=== PATIENT | male | born 1990 | race Caucasian/White ===

== ENCOUNTER 2019-09-28 19:12 | Inpatient (IN) | payer OTHER ==
[2019-09-28 20:13] VITALS: BMI 18.1
--- NOTE | 2019-09-28 22:56 | HP ---
COWS - Scale Resting Pulse: 1= [place] 81-100 Sweatin= Chills/Flushing Restless Observation: 0= Sits Still Pupil Size: 2= Moderately Dilated (Pupils = 3 mm) Bone or Joint Aches: 1= Mild Discomfort Runny Nose/ Eye Tearin= Nasal Congestion GI Upset > 30mins: 0= None Tremor Observation: 1= Tremor [place], Not Seen Yawning Observation: 1= 1-2x During Session Anxiety or Irritability: 2=Irritable/Anxious Goose Flesh Skin: 0=Smooth Skin COWS Score: 10 CIWA Score Nausea/Vomitin-No Nausea/No Vomiting Muscle Tremors: 3 Anxiety: 4-Mod. Anxious/Guarded Agitation: 1-Slight > Activity Paroxysmal Sweats: 3 (Increased facial moisture) Orientation: 0-Oriented Tacttile Disturbances: 1-Very Mild Itch/Numbness Auditory Disturbances: 0-None Visual Disturbances: 0-None Headache: 0-None Present CIWA-Ar Total Score: 12 - Admission Criteria OASAS Guidelines: Admission for Medically Managed Detox: Requires at least one of the followin. CIWA greater than 12 2. Seizures within the past 24 hours 3. Delirium tremens within the past 24 hours 4. Hallucinations within the past 24 hours 5. Acute intervention needed for co occurring medical disorder 6. Acute intervention needed for co occurring psychiatric disorder 7. Severe withdrawal that cannot be handled at a lower level of care (continued vomiting, continued diarrhea, abnormal vital signs) requiring intravenous medication and/or fluids 8. Patient presents the following: CIWA greater than 12 Admission Criteria Met: Admission criteria met Admitting History and Physical - Smoking History Smoking history: Current every day smoker Admission [facility] Chief Complaint: I been using and I need to detox. Allergies/Adverse Reactions: Allergies Allergy/AdvReac Type Severity Reaction Status Date / Time No Known Allergies Allergy Verified 09/28/19 20:02 History of Present Illness: 29 yo first presentation to [facility] seeking heroin, alcohol, and Xanax detox. Hx: Seizure 4 yrs ago r/t abruptly stopping Xanax (states was using a lot more) UTox: + RAMY/MOR/FEN BRANDON: 0.0 Alcohol use began at age 18. Currently drinks a 1/2 pint liquor x past 1 year. Last drink 5 pm yesterday. Heroin use began at age 20. Currently uses 20 bags/day. States smokes. Current use x 3 years Recently detoxed in June 2019 and incarcerated in Aug 2019. States relapsed immediately. States last used 8 pm last night. Denies sharing needles or works or re-using. Has a Narcan kit at home. Cocaine use began at age 28. Currently uses $20/day. States sniffs. Xanax use began at age 22. States was using 3 sticks/day. Last used 2 days ago. Nicotine use began at age 16. Currently smokes 4 cig/day. PMHx: denies MHHx: Depression. Anxiety. Does not see a Psych. Not on MH meds. Denies thoughts of harming self or others. SHx: Domiciled. Unemployed. Current legal issues - states not mandated into tx. Patient Name: Jeff Garcia Date: 1990 Address: [address] [place] [id number] Sex: Male Rx Written Rx Dispensed Drug Quantity Days Supply Prescriber Name 06/28/2019 06/28/2019 buprenorphine-naloxone 4-1 mg sl film 14 7 Ronan Hendricks 06/18/2019 06/18/2019 buprenorphine-naloxone 4-1 mg sl film 14 7 Tita Hogue 10/14/2018 10/14/2018 suboxone 4 mg-1 mg sl film 26 14 Tita Hogue Patient Name: Jeff Garcia Date: 1990 Address: [address] [place] [address] Sex: Male Rx Written Rx Dispensed Drug Quantity Days Supply Prescriber Name 04/25/2019 04/30/2019 oxycodone-acetaminophen 5-325 mg tablet 12 3 Angely Covarrubias Patient Name: Jeff Garcia Date: 1990 Address: [address] [place] [id number] Sex: Male Rx Written Rx Dispensed Drug Quantity Days Supply Prescriber Name 04/18/2019 04/18/2019 oxycodone-acetaminophen 5-325 mg tablet 15 6 Maritza Gill Patient Name: Jeff Garcia Date: 1990 Address: [address] [place] [id number] Sex: Male Rx Written Rx Dispensed Drug Quantity Days Supply Prescriber Name 03/23/2019 03/27/2019 buprenorphine-naloxone 2-0.5 mg sl film 30 30 Ho, Raj Morales MD 03/23/2019 03/27/2019 buprenorphine-naloxone 8-2 mg sl film 30 30 Ho, Raj Morales MD 02/10/2019 02/13/2019 buprenorphine-naloxone 8-2 mg sl film 30 30 Ho, Raj Morales MD 02/10/2019 02/13/2019 buprenorphine-naloxone 4-1 mg sl film 30 30 Ho, Raj Morales MD 01/26/2019 01/27/2019 buprenorphine-naloxone 8-2 mg sl film 15 15 Ho, Raj Morales MD 01/26/2019 01/27/2019 buprenorphine-naloxone 4-1 mg sl film 15 15 Ho, Raj Morales MD 12/22/2018 12/26/2018 buprenorphine-naloxone 4-1 mg sl film 15 15 Ho, Raj Morales MD 12/22/2018 12/26/2018 buprenorphine-naloxone 8-2 mg sl film 15 15 Ho, Raj Morales MD 11/20/2018 12/03/2018 buprenorphine-naloxone 4-1 mg sl film 5 5 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 11/30/2018 12/03/2018 buprenorphine-naloxone 8-2 mg sl film 15 15 Ho, Raj Morales MD 11/11/2018 11/16/2018 buprenorphine-naloxone 8-2 mg sl film 15 15 Leonides Hurt MD 10/28/2018 11/01/2018 buprenorphine-naloxone 8-2 mg sl film 15 15 Leonides Hurt MD 10/23/2018 10/26/2018 buprenorphine-naloxone 8-2 mg sl film 7 7 James Brunner Exam Limitations: No Limitations - Ebola screening Have you traveled outside of the country in the last 21 days: No Have you had contact with anyone from an Ebola affected area: No Have you been sick,other than usual withdrawal symptoms: No Do you have a fever: No - Review of Systems Constitutional: Chills, Diaphoresis, Changes in sleep (Difficulty falling and staying asleep), Unintentional Wgt. Loss EENT: reports: Nose Congestion Respiratory: reports: No Symptoms reported Cardiac: reports: No Symptoms Reported GI: reports: No Symptoms Reported : reports: No Symptoms Reported Musculoskeletal: reports: Neck Pain (Chronic sharp neck pain, w/ stiffness x when gets high cracks necks) Integumentary: reports: No Symptoms Reported Neuro: reports: Headache Endocrine: reports: Increased Thirst Hematology: reports: No Symptoms Reported Psychiatric: reports: Judgement Intact, Orientated x3, Anxious, Depressed ( Denies thoughts of harming self or others) Patient History - Patient Medical History Hx Asthma: No Hx Cardiac Disorders: No Hx Hypertension: No Hx Seizures: No Hx Diabetes: No Hx Gastrointestinal Disorders: No Hx Sexually Transmitted Disorders: No Hx Renal Disease (ESRD): No - Patient Surgical History Past Surgical History: No - PPD History Previous Implant?: Yes Documented Results: Negative w/o proof Implanted On Prior R Admission?: No PPD to be Administered?: Yes - Smoking Cessation Smoking history: Current every day smoker Have you smoked in the past 12 months: Yes Aproximately how many cigarettes per day: 5 Hx Chewing Tobacco Use: No Initiated information on smoking cessation: Yes 'Breaking Loose' booklet given: 09/28/19 - Substance & Tx. History Hx Alcohol Use: Yes Hx Substance Use: Yes Substance Use Type: Alcohol, Cocaine, Heroin, Opiates Hx Substance Use Treatment: Yes (detox, rehab, past suboxone, no MMTP) - Substances abused Heroin Substance route: Injection Frequency: Daily Amount used: 20 bags Age of first use: 20 Date of last use: 09/27/19 Alprazolam (Xanax) Substance route: Oral Frequency: Daily Amount used: 10 mg Age of first use: 22 Date of last use: 09/27/19 Alcohol Substance route: Oral Frequency: Daily Amount used: 1 pint of cognac Age of first use: 18 Date of last use: 09/27/19 Admission Physical Exam S - Vital Signs Vital Signs: Vital Signs - 24 hr 09/28/19 20:00 Temperature 98.1 F Pulse Rate 87 Respiratory 18 Rate Blood Pressure 130/77 - Physical General Appearance: Yes: Nourished, Mild Distress, Tremorous, Sweating ( Increased facial moisture) HEENTM: Yes: EOMI (Jerking movement of eyes upon lateral gaze), Hearing grossly Normal, Normocephalic, Normal Voice, MARTIR (Pupils = 3 mm), Pharynx Normal (Dry mucous membranes.), Nasal Congestion, Other (Thickened saliva) Respiratory: Yes: Lungs Clear (Pulse Ox = 99 %), Normal Breath Sounds, No Respiratory Distress Neck: Yes: No masses,lesions,Nodules, Supple Breast: Yes: Breast Exam Deferred Cardiology: Yes: Regular Rhythm, Regular Rate, S1, S2 Abdominal: Yes: Non Tender, Flat, Soft, Increased Bowel Sounds Genitourinary: Yes: Within Normal Limits Back: Yes: Normal Inspection Musculoskeletal: Yes: full range of Motion, Gait Steady Extremities: Yes: Normal Capillary Refill, Tremors ([place] but not seen) Neurological: Yes: family assistant II-XII NML intact (Jerking movement of eyes upon lateral gaze) Integumentary: Yes: Normal Color, Dry (Except for facial moisture), Warm, Moist (Increased facial moisture - all other areas dry), Other (Decreased skin turgot) Lymphatic: Yes: Within Normal Limits - Diagnostic (1) Unspecified nystagmus Current Visit: Yes Status: Acute (2) Skin abrasion Current Visit: Yes Status: Acute Comment: (R) leg (3) Alcohol dependence with withdrawal, uncomplicated Current Visit: Yes Status: Acute (4) Opioid dependence with withdrawal Current Visit: Yes Status: Acute (5) Nicotine dependence, unspecified, uncomplicated Current Visit: Yes Status: Chronic Qualifiers: Nicotine product type: cigarettes Qualified Code(s): F17.210 - Nicotine dependence, cigarettes, uncomplicated (6) Cocaine dependence, uncomplicated Current Visit: Yes Status: Chronic (7) Skin picking habit Current Visit: Yes Status: Chronic (8) Dehydration symptoms Current Visit: Yes Status: Acute Cleared for Admission [facility] - Detox or Rehab [facility] Level of Care: Medically Managed Detox Regimen/Protocol: Methadone/Librium Claeared for Rehab Admission: No Breathalyzer - Breathalyzer Breathalyzer: 0 Urine Drug Screen - Test Device Lot number: [id number] Expiration date: 07/12/21 - Control Is test valid?: Yes - Results Drug screen NEGATIVE: No Urine drug screen results: RAMY-Cocaine, FEN-Fentanyl, MOP-Opiates Inpatient Rehab Admission - Rehab Decision to Admit Inpatient rehab admission?: No
[2019-09-28] MEDS ORDERED: MAGNESIUM CITRATE 300 ML BOTTLE PO PRN (23:39)
[2019-09-28] MEDS ORDERED: ACETAMINOPHEN 325 MG TABLET (FP) PO PRN ×2 (23:39)
[2019-09-28] MEDS ORDERED: MENTHOL/PHENOL 1 EACH UD MM PRN (23:39)
[2019-09-28] MEDS ORDERED: MAG HYDROX/AL HYDROX/SIMETH 30 ML UNIT-DOSE CUP PO PRN (23:39)
[2019-09-28] MEDS ORDERED: BISMUTH SUBSALICYLATE 524 MG/30 ML UD PO PRN (23:39)
[2019-09-28] MEDS ORDERED: NICOTINE POLACRILEX 2 MG GUM BUC PRN (23:39)
[2019-09-28] MEDS ORDERED: IBUPROFEN 400 MG TABLET (FP) PO PRN (23:39)
[2019-09-28] MEDS ORDERED: MAGNESIUM HYDROX 2400MG/30ML ORAL SUSPENSION 30 ML CUP PO PRN (23:39)
[2019-09-28] MEDS ORDERED: chlordiazePOXIDE HCL 10 MG CAPSULE PO PRN (23:45)
[2019-09-28] MEDS ORDERED: cloNIDine HCL 0.1 MG TABLET PO PRN (23:47)
[2019-09-28] MEDS ORDERED: METHADONE HCL 10 MG TABLET (FOR DETOX USE ONLY) PO ONE (23:59)
[2019-09-29] MEDS: chlordiazePOXIDE HCL 25 MG CAPSULE PO SCH ×3 (06:48→21:35)
[2019-09-29] MEDS ORDERED: METHADONE HCL 5 MG TABLET (FOR DETOX USE ONLY) ONE (09:21)
[2019-09-29] MEDS ORDERED: METHADONE HCL 10 MG TABLET (FOR DETOX USE ONLY) ONE (09:22)
[2019-09-29] MEDS ORDERED: METHADONE (DETOX) 20 MG, METHADONE (DETOX) 5 MG PO ONE (10:00)
[2019-09-29] MEDS: BACITRACIN 0.9 GM PACKET TP SCH ×2 (10:23→21:38)
[2019-09-29] MEDS: PRENATAL VITAMINS W/ FOLIC ACID TABLET (FP) PO SCH (10:23)
--- NOTE | 2019-09-29 10:27 | PN ---
[facility] CIWA - CIWA Score Nausea/Vomitin-No Nausea/No Vomiting Muscle Tremors: 3 Anxiety: 2 Agitation: 3 Paroxysmal Sweats: 3 Orientation: 0-Oriented Tacttile Disturbances: 0-None Auditory Disturbances: 0-None Visual Disturbances: 0-None Headache: 0-None Present CIWA-Ar Total Score: 11 S COWS - Scale Resting Pulse: 1= [place] 81-100 Sweatin= Chills/Flushing Restless Observation: 1= Difficult to Sit Still Pupil Size: 0= Normal to Room Light Bone or Joint Aches: 2= Severe Diffuse Aches Runny Nose/ Eye Tearin= None GI Upset > 30mins: 0= None Tremor Observation of Outstretched Hands: 1= Tremor [place], Not Seen Yawning Observation: 1= 1-2x During Session Anxiety or Irritability: 1=Feels Anxious/Irritable Goose Flesh Skin: 3=Piloerection COWS Score: 11 [facility] Progress Note (SOAP) Subjective: sweats shakes chills irritable restless agitation interrupted sleep Objective: 09/29/19 10:27 Vital Signs Temperature 97.7 F 09/29/19 07:02 Pulse Rate 78 09/29/19 07:02 Respiratory Rate 18 09/29/19 07:02 Blood Pressure 116/58 L 09/29/19 07:02 O2 Sat by Pulse Oximetry (%) labs pending aaox3 lying in bed no acute distress Assessment: 09/29/19 10:27 withdrawals Plan: continue detox increase fluids
[2019-09-29 10:35] LABS: HEMATOCRIT 40.3 % (35.4-49); HEMOGLOBIN 13.1 GM/dL (11.7-16.9); MCH 30.3 pg (25.7-33.7); MCHC 32.6 g/dl (32.0-35.9); MEAN PLT VOLUME 9.2 fl (7.5-11.1); PLATELET COUNT 213 K/MM3 (134-434); RBC 4.33 M/mm3 (4.00-5.60); WHITE BLOOD COUNT 7.8 K/mm3 (4.0-10.0)
[2019-09-29 10:37] LABS: ALBUMIN 3.4 g/dl (3.4-5.0); BILIRUBIN,TOTAL 0.4 mg/dL (0.2-1); BLOOD UREA NITROGEN 22.6 mg/dL (7-18); CALCIUM 8.8 mg/dL (8.5-10.1); CREATININE 1.4 mg/dL (0.55-1.3); POTASSIUM 3.4 mmol/L (3.5-5.1); TOT PROT 6.2 g/dl (6.4-8.2)
--- NOTE | 2019-09-29 10:45 | EKG ---
Test Reason : Blood Pressure : / mmHG Vent. Rate : 081 BPM Atrial Rate : 081 BPM P-R Int : 154 ms QRS Dur : 092 ms QT Int : 384 ms P-R-T Axes : 072 067 044 degrees QTc Int : 446 ms NORMAL SINUS RHYTHM MINIMAL VOLTAGE CRITERIA FOR LVH, MAY BE NORMAL VARIANT BORDERLINE ECG NO PREVIOUS ECGS AVAILABLE Confirmed by Javad Chow MD ([id number]) on 09/29/2019 10:44:32 AM Referred By: Confirmed By:Javad Chow MD
[2019-09-29] MEDS: METHOCARBAMOL 500 MG TABLET PO PRN (20:07)
[2019-09-29] MEDS: MELATONIN 5 MG TABLETS PO PRN (21:35)
[2019-09-29] MEDS: THIAMINE HCL 100 MG TABLET (FP) PO SCH (21:35)
[2019-09-30] MEDS ORDERED: chlordiazePOXIDE HCL 10 MG CAPSULE PO PRN
[2019-09-30] MEDS: chlordiazePOXIDE 5 MG CAPSULE PO SCH ×3 (06:09→21:21)
[2019-09-30] MEDS ORDERED: METHADONE HCL 10 MG TABLET (FOR DETOX USE ONLY) PO ONE (10:00)
[2019-09-30] MEDS: PRENATAL VITAMINS W/ FOLIC ACID TABLET (FP) PO SCH (10:55)
[2019-09-30] MEDS: BACITRACIN 0.9 GM PACKET TP SCH ×2 (10:55→21:21)
--- NOTE | 2019-09-30 15:47 | PN ---
S CIWA - CIWA Score Nausea/Vomitin Muscle Tremors: 2 Anxiety: 2 Agitation: 2 Paroxysmal Sweats: No Perspiration Orientation: 0-Oriented Tacttile Disturbances: 1-Very Mild Itch/Numbness Auditory Disturbances: 0-None Visual Disturbances: 0-None Headache: 1-Very Mild CIWA-Ar Total Score: 10 [facility] COWS - Scale Resting Pulse: 0= [place] 80 or Below Sweatin= No chills or Flushing Restless Observation: 1= Difficult to Sit Still Pupil Size: 1= Pupils >than Normal Bone or Joint Aches: 1= Mild Discomfort Runny Nose/ Eye Tearin= Runny Nose/Eyes GI Upset > 30mins: 1= Stomach Cramp Tremor Observation of Outstretched Hands: 2= Slight Tremor Visible Yawning Observation: 1= 1-2x During Session Anxiety or Irritability: 2=Irritable/Anxious Goose Flesh Skin: 0=Smooth Skin COWS Score: 11 S Progress Note (SOAP) Subjective: alert,irritable,anxious,interrupted sleep,tremor Objective: 09/30/19 15:45 Vital Signs Temperature 97.9 F 09/30/19 13:33 Pulse Rate 74 09/30/19 13:33 Respiratory Rate 16 09/30/19 13:33 Blood Pressure 139/70 09/30/19 13:33 O2 Sat by Pulse Oximetry (%) Laboratory Last Values WBC 7.8 K/mm3 (4.0-10.0) 09/29/19 07:45 RBC 4.33 M/mm3 (4.00-5.60) 09/29/19 07:45 Hgb 13.1 GM/dL (11.7-16.9) 09/29/19 07:45 Hct 40.3 % (35.4-49) 09/29/19 07:45 MCV 93.0 fl (80-96) 09/29/19 07:45 MCH 30.3 pg (25.7-33.7) 09/29/19 07:45 MCHC 32.6 g/dl (32.0-35.9) 09/29/19 07:45 RDW 14.0 % (11.9-15.9) 09/29/19 07:45 Plt Count 213 K/MM3 (134-434) 09/29/19 07:45 MPV 9.2 fl (7.5-11.1) 09/29/19 07:45 Sodium 141 mmol/L (136-145) 09/29/19 07:45 Potassium 3.4 mmol/L (3.5-5.1) L 09/29/19 07:45 Chloride 108 mmol/L (98-107) H 09/29/19 07:45 Carbon Dioxide 26 mmol/L (21-32) 09/29/19 07:45 Anion Gap 6 MMOL/L (8-16) L 09/29/19 07:45 BUN 22.6 mg/dL (7-18) H 09/29/19 07:45 Creatinine 1.4 mg/dL (0.55-1.3) H 09/29/19 07:45 Est GFR (CKD-EPI)AfAm 77.59 09/29/19 07:45 Est GFR (CKD-EPI)NonAf 66.94 09/29/19 07:45 Random Glucose 115 mg/dL (74-106) H 09/29/19 07:45 Calcium 8.8 mg/dL (8.5-10.1) 09/29/19 07:45 Total Bilirubin 0.4 mg/dL (0.2-1) 09/29/19 07:45 AST 13 U/L (15-37) L 09/29/19 07:45 ALT 27 U/L (13-61) 09/29/19 07:45 Alkaline Phosphatase 77 U/L (45-117) 09/29/19 07:45 Total Protein 6.2 g/dl (6.4-8.2) L 09/29/19 07:45 Albumin 3.4 g/dl (3.4-5.0) 09/29/19 07:45 RPR Titer Nonreactive (NONREACTIVE) 09/29/19 07:45 Assessment: 09/30/19 15:45 withdrawal symptom Plan: continue detox,encourage oral fluid,k replacement,repaet cmp,fasting glucose in am
[2019-09-30] MEDS ORDERED: POTASSIUM CHLORIDE TABS 20 MEQ TABLET.ER (FP) PO ONE (17:00)
[2019-09-30] MEDS: METHOCARBAMOL 500 MG TABLET PO PRN (18:38)
[2019-09-30] MEDS: MELATONIN 5 MG TABLETS PO PRN (21:21)
[2019-09-30] MEDS: THIAMINE HCL 100 MG TABLET (FP) PO SCH (21:21)
[2019-10-01] MEDS: chlordiazePOXIDE HCL 10 MG CAPSULE PO SCH ×3 (06:29→22:18)
[2019-10-01] MEDS ORDERED: METHADONE HCL 5 MG TABLET (FOR DETOX USE ONLY) ONE (09:35)
[2019-10-01] MEDS ORDERED: METHADONE HCL 10 MG TABLET (FOR DETOX USE ONLY) ONE (09:36)
[2019-10-01] MEDS ORDERED: METHADONE (DETOX) 10 MG, METHADONE (DETOX) 5 MG PO ONE (10:00)
[2019-10-01] MEDS: BACITRACIN 0.9 GM PACKET TP SCH ×2 (11:20→22:17)
[2019-10-01] MEDS: PRENATAL VITAMINS W/ FOLIC ACID TABLET (FP) PO SCH (11:20)
[2019-10-01] MEDS: POTASSIUM CHLORIDE TABS 20 MEQ TABLET.ER (FP) PO SCH (11:20)
--- NOTE | 2019-10-01 13:14 | PN ---
[facility] CIWA - CIWA Score Nausea/Vomitin-Mild Nausea/No Vomiting Muscle Tremors: 1-None Visible, but [place] Anxiety: 1-Mildly Anxious Agitation: 1-Slight > Activity Paroxysmal Sweats: No Perspiration Orientation: 0-Oriented Tacttile Disturbances: 0-None Auditory Disturbances: 0-None Visual Disturbances: 0-None Headache: 1-Very Mild CIWA-Ar Total Score: 5 S COWS - Scale Resting Pulse: 1= [place] 81-100 Sweatin= No chills or Flushing Restless Observation: 1= Difficult to Sit Still Pupil Size: 0= Normal to Room Light Bone or Joint Aches: 1= Mild Discomfort Runny Nose/ Eye Tearin= Nasal Congestion GI Upset > 30mins: 1= Stomach Cramp Tremor Observation of Outstretched Hands: 1= Tremor [place], Not Seen Yawning Observation: 0= None Anxiety or Irritability: 1=Feels Anxious/Irritable Goose Flesh Skin: 0=Smooth Skin COWS Score: 7 [facility] Progress Note (SOAP) Subjective: alert,irritable,anxious,interrupted sleep,pain in the body Objective: 10/01/19 13:17 Vital Signs Temperature 98.1 F 10/01/19 08:43 Pulse Rate 83 10/01/19 08:43 Respiratory Rate 18 10/01/19 08:43 Blood Pressure 140/56 L 10/01/19 08:43 O2 Sat by Pulse Oximetry (%) Assessment: 10/01/19 13:17 withdrawal symptom Plan: continue methadone and librium,fasting glucose cmp in am
[2019-10-01] MEDS: THIAMINE HCL 100 MG TABLET (FP) PO SCH (22:17)
[2019-10-02] MEDS ORDERED: chlordiazePOXIDE HCL 10 MG CAPSULE PO ONE (05:00)
[2019-10-02 09:38] LABS: ALBUMIN 3.3 g/dl (3.4-5.0); BILIRUBIN,TOTAL 0.1 mg/dL (0.2-1); BLOOD UREA NITROGEN 17.2 mg/dL (7-18); CALCIUM 9.1 mg/dL (8.5-10.1); CREATININE 0.9 mg/dL (0.55-1.3); POTASSIUM 4.3 mmol/L (3.5-5.1); TOT PROT 6.2 g/dl (6.4-8.2)
[2019-10-02] MEDS ORDERED: METHADONE HCL 10 MG TABLET (FOR DETOX USE ONLY) PO ONE (10:00)
[2019-10-02] MEDS: POTASSIUM CHLORIDE TABS 20 MEQ TABLET.ER (FP) PO SCH (10:40)
[2019-10-02] MEDS: BACITRACIN 0.9 GM PACKET TP SCH ×2 (10:40→22:33)
[2019-10-02] MEDS: PRENATAL VITAMINS W/ FOLIC ACID TABLET (FP) PO SCH (10:40)
--- NOTE | 2019-10-02 12:28 | PN ---
[facility] CIWA - CIWA Score Nausea/Vomitin-No Nausea/No Vomiting Muscle Tremors: 1-None Visible, but [place] Anxiety: 1-Mildly Anxious Agitation: 1-Slight > Activity Paroxysmal Sweats: 1-Minimal [place] Moist Orientation: 0-Oriented Tacttile Disturbances: 0-None Auditory Disturbances: 0-None Visual Disturbances: 0-None Headache: 1-Very Mild CIWA-Ar Total Score: 5 S COWS - Scale Resting Pulse: 1= [place] 81-100 Sweatin= No chills or Flushing Restless Observation: 0= Sits Still Pupil Size: 0= Normal to Room Light Bone or Joint Aches: 1= Mild Discomfort Runny Nose/ Eye Tearin= None GI Upset > 30mins: 0= None Tremor Observation of Outstretched Hands: 0= None Yawning Observation: 0= None Anxiety or Irritability: 1=Feels Anxious/Irritable Goose Flesh Skin: 0=Smooth Skin COWS Score: 3 S Progress Note (SOAP) Subjective: Pt completed alcohol detox protocol today. Will be completing OUD detox protocol with methadone tomorrow. O: Vital Signs - 24 hr 10/01/19 10/01/19 10/01/19 13:14 16:45 20:24 Temperature 98.1 F 99 F 97.9 F Pulse Rate 77 76 85 Respiratory 18 18 18 Rate Blood Pressure 130/70 132/65 140/79 10/02/19 10/02/19 10/02/19 00:45 06:05 10:06 Temperature 97.9 F 98.2 F Pulse Rate 87 81 Respiratory 18 18 18 Rate Blood Pressure 143/90 140/75 Laboratory Tests 09/29/19 09/29/19 09/29/19 07:45 07:45 07:45 WBC 7.8 RBC 4.33 Hgb 13.1 Hct 40.3 MCV 93.0 MCH 30.3 MCHC 32.6 RDW 14.0 Plt Count 213 MPV 9.2 Sodium 141 Potassium 3.4 L Chloride 108 H Carbon Dioxide 26 Anion Gap 6 L BUN 22.6 H Creatinine 1.4 H Est GFR (CKD-EPI)AfAm 77.59 Est GFR (CKD-EPI)NonAf 66.94 Random Glucose 115 H Fasting Glucose Calcium 8.8 Total Bilirubin 0.4 AST 13 L ALT 27 Alkaline Phosphatase 77 Total Protein 6.2 L Albumin 3.4 RPR Titer Nonreactive 10/02/19 07:00 WBC RBC Hgb Hct MCV MCH MCHC RDW Plt Count MPV Sodium 138 Potassium 4.3 Chloride 103 Carbon Dioxide 31 Anion Gap 4 L BUN 17.2 Creatinine 0.9 Est GFR (CKD-EPI)AfAm 132.37 Est GFR (CKD-EPI)NonAf 114.21 Random Glucose 88 Fasting Glucose 88 Calcium 9.1 Total Bilirubin 0.1 L AST 39 H ALT 38 Alkaline Phosphatase 69 Total Protein 6.2 L Albumin 3.3 L RPR Titer a/p: OUD/AUD- continue detox protocols, pt without complaints today. Anticipate d/c tomorrow.
[2019-10-02] MEDS: THIAMINE HCL 100 MG TABLET (FP) PO SCH (22:33)
[2019-10-03] MEDS ORDERED: METHADONE HCL 5 MG TABLET (FOR DETOX USE ONLY) PO ONE (06:00)
[2019-10-03] MEDS: PRENATAL VITAMINS W/ FOLIC ACID TABLET (FP) PO SCH (10:20)
[2019-10-03] MEDS: BACITRACIN 0.9 GM PACKET TP SCH (10:20)
[2019-10-03 11:48] VITALS: BP 128/71; PULSE 78; TEMP 97.3
--- NOTE | 2019-10-03 13:33 | DS ---
[facility] Discharge Summary Admission Date: 09/28/19 Discharge Date: 10/03/19 - History Present History: Alcohol Dependence, Opioid Dependence, Sedative Dependence - Physical Exam Results Vital Signs: Vital Signs Temperature 97.3 F L 10/03/19 11:48 Pulse Rate 78 10/03/19 11:48 Respiratory Rate 18 10/03/19 11:48 Blood Pressure 128/71 10/03/19 11:48 O2 Sat by Pulse Oximetry (%) Laboratory Tests 09/29/19 09/29/19 09/29/19 07:45 07:45 07:45 WBC 7.8 RBC 4.33 Hgb 13.1 Hct 40.3 MCV 93.0 MCH 30.3 MCHC 32.6 RDW 14.0 Plt Count 213 MPV 9.2 Sodium 141 Potassium 3.4 L Chloride 108 H Carbon Dioxide 26 Anion Gap 6 L BUN 22.6 H Creatinine 1.4 H Est GFR (CKD-EPI)AfAm 77.59 Est GFR (CKD-EPI)NonAf 66.94 Random Glucose 115 H Fasting Glucose Calcium 8.8 Total Bilirubin 0.4 AST 13 L ALT 27 Alkaline Phosphatase 77 Total Protein 6.2 L Albumin 3.4 RPR Titer Nonreactive 10/02/19 07:00 WBC RBC Hgb Hct MCV MCH MCHC RDW Plt Count MPV Sodium 138 Potassium 4.3 Chloride 103 Carbon Dioxide 31 Anion Gap 4 L BUN 17.2 Creatinine 0.9 Est GFR (CKD-EPI)AfAm 132.37 Est GFR (CKD-EPI)NonAf 114.21 Random Glucose 88 Fasting Glucose 88 Calcium 9.1 Total Bilirubin 0.1 L AST 39 H ALT 38 Alkaline Phosphatase 69 Total Protein 6.2 L Albumin 3.3 L RPR Titer PE alert and oriented x 3 irritable, anxious pacing on unit in no acute physical distress no SI/HI reported Detox completed stable for d/c to [facility] - Treatment Hospital Course: Detox Protocol Followed, Detoxed Safely, Discharged Condition Good, Rehab Referral Accepted Patient has Accepted a Rehab Referral to: [facility] - Medication Discharge Medications: Ambulatory Orders NK [No Known Home Medication] 09/28/19 - AMA Did Patient Leave Against Medical Advice: No
== END 2019-10-03 13:01 | disposition home or self-care (01) | DRG 773 ==
LOC: YASAS 19:12 → Y6N 23:46
PROVIDERS: ADMIT Allergy & Immunology; ATTEND Allergy & Immunology
PROC: HZ2ZZZZ Detoxification Services for Substance Abuse Treatment (ICD-10-PCS; principal; 2019-09-28)
DX: F10.230 Alcohol dependence with withdrawal, uncomplicated (principal); F11.23 Opioid dependence with withdrawal; F13.230 Sedative, hypnotic or anxiolytic dependence with withdrawal, uncomplicated; F14.20 Cocaine dependence, uncomplicated; F17.210 Nicotine dependence, cigarettes, uncomplicated; F32.9 Major depressive disorder, single episode, unspecified; F41.9 Anxiety disorder, unspecified; F42.4 Excoriation (skin-picking) disorder; H55.00 Unspecified nystagmus; E86.0 Dehydration; S80.811A Abrasion, right lower leg, initial encounter; X58.XXXA Exposure to other specified factors, initial encounter; Y93.9 Activity, unspecified; Y92.89 Other specified places as the place of occurrence of the external cause; Y99.9 Unspecified external cause status
CPT/HCPCS: 36415; 80053; 82947; 85027; 86593; 93005; 93010

== ENCOUNTER 2024-10-21 11:06 | Inpatient (IN) | payer OTHER ==
[2024-10-21 11:31] VITALS: BMI 21.2
[2024-10-21] MEDS ORDERED: BENZONATATE 200 MG CAPSULE PO PRN (12:05)
[2024-10-21] MEDS ORDERED: guaiFENesin 600 MG TABLET.ER (FP) PO PRN (12:05)
[2024-10-21] MEDS ORDERED: POLYETHYLENE GLYCOL (HEALTHYLAX) 3350 17 GM PACKET PO PRN (12:05)
[2024-10-21] MEDS ORDERED: IBUPROFEN 400 MG TABLET (FP) PO PRN (12:05)
[2024-10-21] MEDS ORDERED: MAGNESIUM HYDROX 2400MG/30ML ORAL SUSPENSION 30 ML CUP PO PRN (12:05)
[2024-10-21] MEDS ORDERED: DICYCLOMINE HCL 10 MG CAPSULE PO PRN (12:05)
[2024-10-21] MEDS ORDERED: LOPERAMIDE HCL 2 MG CAPSULE PO PRN (12:05)
[2024-10-21] MEDS ORDERED: ONDANSETRON *ODT* 4 MG TABLET SL PRN (12:05)
[2024-10-21] MEDS ORDERED: NALOXONE (NARCAN) HCL 4 MG/0.1 ML SPRAY NS PRN (12:05)
[2024-10-21] MEDS ORDERED: BISMUTH SUBSALICYLATE 262 MG/15 ML BTL PO PRN (12:05)
[2024-10-21] MEDS ORDERED: BENZOCAINE/MENTHOL (CHLORASEPTIC ) LOZENGE MM PRN (12:05)
[2024-10-21] MEDS ORDERED: MAG HYDROX/AL HYDROX/SIMETH 30 ML UNIT-DOSE CUP PO PRN (12:05)
[2024-10-21] MEDS: methaDONE HCL 10 MG TABLET PO ONE ×2 (12:56→13:11)
[2024-10-21] MEDS ORDERED: PRENATAL VITAMINS W/ FOLIC ACID TABLET (FP) PO ONE (13:06)
[2024-10-21] MEDS ORDERED: methaDONE HCL 10 MG TABLET (FOR DETOX USE ONLY) ONE (13:06)
[2024-10-21] MEDS: PRENATAL VITAMINS W/ FOLIC ACID TABLET (FP) PO SCH (13:11)
[2024-10-21] MEDS: cloNIDine HCL 0.1 MG TABLET PO SCH (13:37)
[2024-10-21] MEDS ORDERED: methaDONE HCL 10 MG TABLET PO PRN (14:05)
[2024-10-21] MEDS: THIAMINE 100 MG TABLET PO SCH (21:43)
[2024-10-21] MEDS: MELATONIN 5 MG TABLETS PO SCH (21:43)
[2024-10-21] MEDS: METHOCARBAMOL 500 MG TABLET PO PRN (21:43)
[2024-10-22] MEDS: hydrOXYzine PAMOATE 25 MG CAPSULE (FP) PO PRN (03:36)
[2024-10-22 15:25] LABS: HEMATOCRIT 34.8 % (35.4-49); HEMOGLOBIN 11.4 GM/dL (11.7-16.9); MCH 29.5 pg (25.7-33.7); MCHC 32.8 g/dl (32.0-35.9); MEAN CELL VOLUME 90.2 fl (80-96); MEAN PLT VOLUME 8.8 fl (7.5-11.1); PLATELET COUNT 277 10^3/uL (134-434); RBC 3.86 M/mm3 (4.00-5.60); RDW 14.3 % (11.9-15.9); WHITE BLOOD COUNT 4.7 K/mm3 (4.0-10.0)
[2024-10-22 15:38] LABS: POTASSIUM 4.2 mmol/L (3.5-5.1)
[2024-10-22 15:42] LABS: ALBUMIN 3.2 g/dl (3.4-5.0); BLOOD UREA NITROGEN 12.4 mg/dL (7-18); CALCIUM 8.3 mg/dL (8.5-10.1)
[2024-10-22 15:46] LABS: CREATININE 0.9 mg/dL (0.55-1.3)
[2024-10-22 15:47] LABS: BILIRUBIN,TOTAL 0.4 mg/dL (0.2-1); TOT PROT 5.6 g/dl (6.4-8.2)
[2024-10-23] MEDS: methaDONE 40 MG, methaDONE 10 MG PO ONE (10:06)
[2024-10-23] MEDS: BACITRACIN 0.9 GM PACKET TP SCH (11:11)
[2024-10-23] MEDS: cloNIDine HCL 0.1 MG TABLET PO PRN (20:20)
[2024-10-24] MEDS: GABAPENTIN 100 MG CAPSULE PO SCH (14:11)
[2024-10-24] MEDS: MUPIROCIN 2% TOPICAL OINTMENT 22 GM TUBE TP SCH (14:13)
[2024-10-24] MEDS: CLOTRIMAZOLE 1% CREAM TP SCH (22:20)
[2024-10-24] MEDS: CEPHALEXIN MONOHYDRATE 500 MG CAPSULE (UD) PO SCH (22:20)
[2024-10-25] MEDS: IBUPROFEN 600 MG TABLET (FP) PO PRN (00:56)
[2024-10-25] MEDS: methaDONE 40 MG, methaDONE 20 MG PO ONE (10:18)
[2024-10-25] MEDS: GABAPENTIN 100 MG CAPSULE PO SCH (13:19)
[2024-10-26] MEDS: ACETAMINOPHEN 325 MG TABLET (FP) PO PRN (02:50)
[2024-10-26 06:24] VITALS: RESP 17
[2024-10-26 09:09] VITALS: BP 129/86; PULSE 74; TEMP 98.1
[2024-10-26] MEDS ORDERED: methaDONE HCL 10 MG TABLET PO ONE (09:25)
== END 2024-10-26 10:06 | disposition home or self-care (01) | DRG 773 ==
LOC: YASAS 11:06 → Y6N 13:17
PROVIDERS: ADMIT Allergy & Immunology; ATTEND Allergy & Immunology
PROC: HZ2ZZZZ Detoxification Services for Substance Abuse Treatment (ICD-10-PCS; principal; 2024-10-21)
DX: F11.23 Opioid dependence with withdrawal (principal); F14.20 Cocaine dependence, uncomplicated; F12.20 Cannabis dependence, uncomplicated; F17.210 Nicotine dependence, cigarettes, uncomplicated; F19.282 Other psychoactive substance dependence with psychoactive substance-induced sleep disorder; F19.24 Other psychoactive substance dependence with psychoactive substance-induced mood disorder; F42.4 Excoriation (skin-picking) disorder; F31.9 Bipolar disorder, unspecified; Z86.69 Personal history of other diseases of the nervous system and sense organs; R63.6 Underweight; Z68.21 Body mass index [BMI] 21.0-21.9, adult
CPT/HCPCS: 36415; 80053; 80305; 80307; 85027; 86780; 93005; 93010